=== PATIENT | male | born 1960 | race Caucasian/White ===

== ENCOUNTER 2020-02-23 09:38 | Emergency (ER) | payer BC ==
[~2020-02-23] VITALS: Ht 160 cm; Wt 72.6 kg
[2020-02-23] MEDS ORDERED: HIGH BLOOD PRESSURE PO (09:55)
[2020-02-23] MEDS ORDERED: ZOFRAN ODT4 MG SUBLING (10:33)
[2020-02-23 10:45] VITALS: BP 163/103
== END 2020-02-23 10:45 | disposition home or self-care (01) ==
LOC: M.ERS 09:38
DX: U07.1 COVID-19 (principal); I10 Essential (primary) hypertension; Z88.6 Allergy status to analgesic agent

== ENCOUNTER 2020-02-28 21:10 | Emergency (ER) | payer BC ==
[~2020-02-28] VITALS: Ht 160 cm; Wt 72.6 kg
[~2020-02-28 21:10] MED LIST: HIGH BLOOD PRESSURE PO; ZOFRAN ODT4 MG SUBLING
[2020-02-28 21:57] LABS: ABSOLUTE LYMPHOCYTES 1.1 thou/uL (0.8-5.3); ABSOLUTE MONOCYTES 0.3 thou/uL (0.0-1.2); ABSOLUTE NEUTROPHILS 3.7 thou/uL (1.6-8.1); BASOPHILS 0.1 %; EOSINOPHILS 0.6 %; HEMATOCRIT 40.2 % (42.0-52.0); HEMOGLOBIN 14.6 gm/dL (14.0-18.0); MCH 32.5 pg (26.0-34.0); MCHC 36.2 g/dL (28.0-37.0); MCV 89.8 fL (80.0-100.0); MONOCYTES 5.7 %; MPV 7.9 fl. (7.2-11.1); NUCLEATED RBCS 0 /100WBC; PLATELET COUNT* 243 thou/uL (150-400); POLYS 71.6 %; RBC 4.48 mil/uL (4.50-6.00); RDW-CV 13.3 % (10.5-14.5); WBC 5.1 thou/uL (4.0-11.0)
[2020-02-28 22:09] LABS: INFLUENZA A ANTIGEN Negative (Negative); INFLUENZA B ANTIGEN Negative (Negative)
[2020-02-28 22:11] LABS: CALCIUM 8.4 mg/dL (8.5-10.1); CREATININE 1.2 mg/dL (0.6-1.3); POTASSIUM 3.9 mmol/L (3.5-5.1)
[2020-02-28 22:15] LABS: ALBUMIN 3.3 g/dL (3.4-5.0); TOTAL BILIRUBIN 0.6 mg/dL (<0.1-1.0); TOTAL PROTEIN 7.7 g/dL (6.4-8.2)
[2020-02-29 00:16] VITALS: BP 164/96
--- NOTE | 2020-02-29 13:39 | EKG ---
[place] [address] ELECTROCARDIOGRAM REPORT Name: FAINA PAEZ Room: [facility]#: [id number] Admission: 02/28/20 Attend Phys: Discharge: 02/29/20 Date of : 64 Date of Service: 02/28/202122 Report #: [id number] THIS REPORT FOR: //name// [facility] ED Test Date: 2020-02-28 Test Time: 21:23:18 Pat Name: FAINA PAEZ Department: Room: Gender: Manager Pathology: [facility] : 1960 Requested By: Merritt Cook Order Number: [id number] MD: Shashank Pizano Measurements Intervals [place] Rate: 109 P: 47 AL: 148 QRS: 22 QRSD: 78 T: 38 QT: 329 QTc: 444 Interpretive Statements Sinus tachycardia Baseline wander in lead(s) II,III,aVR,aVF No previous ECG available for comparison Electronically Signed On 02-29-2020 13:39:36 CDT by Shashank Pizano [email or web address] <ELECTRONICALLY SIGNED> By: Shashank Pizano MD, FAC 02/29/20 1339 22 22 Shashank Pizano MD, [facility] /EPI
== END 2020-02-29 00:20 | disposition home or self-care (01) ==
LOC: M.ERS 21:10
PROVIDERS: Nurse Practitioner Psychiatric/Mental Health
DX: U07.1 COVID-19 (principal); I10 Essential (primary) hypertension; Z88.6 Allergy status to analgesic agent